=== PATIENT | male | born 1995 | race Caucasian/White ===

== ENCOUNTER 2022-02-17 16:41 | Emergency (ER) | payer OTHER ==
[~2022-02-17] VITALS: Ht 172.7 cm; Wt 64.0 kg
[2022-02-17] MEDS ORDERED: IBUP-2029 MT (21:34)
[2022-02-17] MEDS ORDERED: METH-653 MT (21:34)
[2022-02-17 21:42] VITALS: BP 122/78
== END 2022-02-17 21:42 | disposition home or self-care (01) ==
LOC: ER 16:41
DX: M54.50 Low back pain, unspecified (principal)
CPT/HCPCS: 99281; 99283